=== PATIENT | male | born 1980 | race Two or more races ===

== ENCOUNTER 2023-11-13 07:34 | Emergency (ER) | payer OTHER ==
[~2023-11-13] VITALS: Ht 177.8 cm; Wt 86.2 kg
[2023-11-13 07:38] VITALS: BP 141/118; TEMP 98.5
[2023-11-13] MEDS ORDERED: FLUORESCEIN SODIUM OPHTH 1 EA STRIP ONE (08:00)
[2023-11-13] MEDS ORDERED: TETRAcaine 5 ML BOTTLE ONE (08:01)
[2023-11-13] MEDS ORDERED: ERYT3.5O9 LEFTEYE (08:06)
[2023-11-13] MEDS: FLUORESCEIN SODIUM OPHTH 1 EA STRIP OP ONE (08:10)
[2023-11-13] MEDS: TETRACAINE HCL 0.5% OPHTALMIC 15 ML BOTTLE OP ONE (08:11)
[2023-11-13 09:22] VITALS: O2SAT 100
== END 2023-11-13 09:24 | disposition home or self-care (01) ==
LOC: ER 07:52
DX: S05.02XA Injury of conjunctiva and corneal abrasion without foreign body, left eye, initial encounter (principal); H10.9 Unspecified conjunctivitis; H57.8A2 Foreign body sensation, left eye; F41.9 Anxiety disorder, unspecified; X58.XXXA Exposure to other specified factors, initial encounter; Y93.89 Activity, other specified; Y92.89 Other specified places as the place of occurrence of the external cause; Y99.8 Other external cause status